=== PATIENT | female | born 1990 | race Caucasian/White ===

== ENCOUNTER 2017-04-14 05:36 | Day surgery (SDC) | payer BC ==
[~2017-04-14] VITALS: Ht 165.1 cm; Wt 80.0 kg
[2017-04-14 06:10] VITALS: BP 117/64
[2017-04-14 09:04] LABS: INTERNAL CONTROL VALID? YES
[2017-04-14 10:08] VITALS: BP 130/83
[2017-04-14 10:56] VITALS: BP 115/65
== END 2017-04-14 13:10 | disposition home or self-care (01) ==
LOC: SDC 05:36
PROVIDERS: Otolaryngology
PROC: 0CTPXZZ Resection of Tonsils, External Approach (ICD-10-PCS; principal; 2017-04-14)
DX: J35.01 Chronic tonsillitis (principal); F17.210 Nicotine dependence, cigarettes, uncomplicated
CPT/HCPCS: 84703; 88304; J0131; J0171; J0561; J0690; J1100; J1170; J1885; J2250; J2405; J3010; S0020